=== PATIENT | male | born 1990 | race Caucasian/White ===

== ENCOUNTER → 2016-09-18 | Outpatient (CLI) | payer OTHER ==
--- NOTE | 2016-09-18 10:35 | RAD ---
Exam performed: Supine and upright X-ray abdomen KUB. Clinical Indication: Mid to right abdominal pain and cramping Date of Service: 09/18/16 Comparison: None available Findings: Upright and supine radiograph of the abdomen and pelvis reveals no evidence of ileus or obstruction. Diffuse scattered stool is seen throughout the colon including rectosigmoid region. Definite pathologic calcification or organomegaly is not identified. The visualized osseous structures appear unremarkable. Impression: 1. Diffuse scattered stool throughout the colon. Correlate clinically for constipation. 2. No additional abnormality seen.
== END | disposition home or self-care (01) ==
LOC: DXRADRC 10:08
PROVIDERS: ATTEND Physician Assistant
DX: K59.00 Constipation, unspecified (principal)
CPT/HCPCS: 74020

== ENCOUNTER → 2016-10-13 | Outpatient (CLI) | payer OTHER ==
[~2016-10-13] MED LIST: IOHEXOL 240 MG/ML 50ML VIAL. ONE; IOHEXOL 300 MG/ML 75 ML VIAL. IV ONE
--- NOTE | 2016-10-13 11:31 | RAD ---
Indication right lower quadrant pain for a month. 24 hours of nausea and diarrhea and vomiting. Axial images through the abdomen and pelvis were obtained. Only a very limited amount of oral contrast was administered. Only the stomach is opacified. 75 cc of Omnipaque 300 was administered intravenously. No prior CT imaging of the abdomen or pelvis is available. The lung bases are clear. The liver and spleen appear unremarkable. The gallbladder appears grossly normal. No adrenal or renal pathology is seen. The pancreas appears unremarkable. There is slight dilatation of small bowel loops. The finding is nonspecific but could reflect enteritis. High-grade mechanical obstruction is not suggested on this exam. The appendix is slightly dilated in the right lower quadrant measuring 7 to 8 mm in greatest diameter. This is likely incidental. Periappendiceal inflammatory changes are not seen. Early appendicitis cannot be entirely excluded on the basis of imaging and clinical correlation as to this lesser possibility advised. No additional finding is seen in the abdomen or pelvis. IMPRESSION: Mild dilatation of small bowel loops is nonspecific. Inflammation, enteritis, should be considered. Slightly prominent appendix but no periappendiceal inflammatory changes. This is likely incidental. Early appendicitis cannot be entirely excluded on the basis of imaging and clinical correlation as to this possibility advised. PQRS Compliance Statement: One or more of the following individualized dose reduction techniques were utilized for this examination: 1. Automated exposure control 2. Adjustment of the mA and/or kV according to patient size 3. Use of iterative reconstruction technique
== END | disposition home or self-care (01) ==
LOC: CT 09:34
PROVIDERS: ATTEND Physician Assistant Medical
DX: R91.8 Other nonspecific abnormal finding of lung field (principal); R10.31 Right lower quadrant pain; R11.2 Nausea with vomiting, unspecified; R19.7 Diarrhea, unspecified
CPT/HCPCS: 74177; Q9966; Q9967

== ENCOUNTER → 2016-10-14 | Outpatient (CLI) | payer OTHER | END | disposition home or self-care (01) | LOC: LAB 12:31 | PROVIDERS: ATTEND Physician Assistant Medical | DX: R19.7 Diarrhea, unspecified (principal) | CPT/HCPCS: 36415; 87045; 87177 ==

== ENCOUNTER → 2016-11-19 | Outpatient (CLI) | payer OTHER ==
--- NOTE | 2016-11-19 12:47 | RAD ---
CT abdomen/pelvis with contrast 11/19/2016 at 0950 hours Indication: Right lower quadrant abdominal pain Comparison: CT abdomen/pelvis 10/13/2016 Technique: Multiple axial CT images of the abdomen and pelvis were performed with intravenous contrast. 74 mL of Omnipaque 300 was administered intravenously. Oral contrast was administered. Findings: Lung bases are clear. Heart size is within normal limits. The liver enhances homogenously without evidence for a focal mass lesion. The spleen is normal. Bilateral adrenal glands are normal. The gallbladder is present without adjacent inflammatory changes. Pancreas is normal in appearance. No pancreatic ductal dilatation. No peripancreatic inflammatory changes. No intrahepatic or extrahepatic biliary ductal dilatation. The abdominal aorta is normal in course and caliber. IVC is patent. There are no enlarged lymph nodes in the abdomen or pelvis. There is no free intraperitoneal air. No free fluid within the abdomen or pelvis. The kidneys enhance symmetrically. There is no hydronephrosis. No contour deforming renal mass. Small and large bowel are normal in caliber. Appendix is nondilated. No pericolonic inflammatory changes are present. The urinary bladder is normal in appearance. No suspicious osseous lesions are identified. Impression: No acute abnormality of the abdomen or pelvis. Specifically, the appendix is not dilated. PQRS Compliance Statement: One or more of the following individualized dose reduction techniques were utilized for this examination: 1. Automated exposure control 2. Adjustment of the mA and/or kV according to patient size 3. Use of iterative reconstruction technique
== END | disposition home or self-care (01) ==
LOC: CT 07:41
PROVIDERS: ATTEND Internal Medicine Gastroenterology
DX: R10.31 Right lower quadrant pain (principal)
CPT/HCPCS: 74177; Q9966; Q9967

== ENCOUNTER → 2017-06-16 | Outpatient (CLI) | payer OTHER ==
--- NOTE | 2017-06-16 13:37 | RAD ---
Right neck ultrasound, 06/16/2017: History: Right neck lump The area of clinical concern along the right side of the neck was carefully scanned. There is a 3.9 x 2.8 x 1.7 cm nodule at this level. This is a solid nodule with internal vascularity. It probably represents an enlarged lymph node. CT scanning would best define the origin of this nodule and adjacent structures, if clinically indicated.
== END | disposition home or self-care (01) ==
LOC: US 12:41
PROVIDERS: ATTEND Physician Assistant
DX: R59.0 Localized enlarged lymph nodes (principal)
CPT/HCPCS: 76536

== ENCOUNTER → 2017-07-06 | Outpatient (CLI) | payer OTHER ==
[~2017-07-06] MED LIST changes: +CONTRAST GIVEN MC PRN; -IOHEXOL 240 MG/ML 50ML VIAL. ONE
--- NOTE | 2017-07-06 09:21 | RAD ---
Examination: CT soft tissue neck with IV contrast History: History of mass in the lateral portion of the neck Comparison: Ultrasound from 06/16/2017 Technique: Axial CT images of the soft tissue neck were performed and IV contrast. Coronal and sagittal reformats were performed PQRS Compliance Statement: One or more of the following individualized dose reduction techniques were utilized for this examination: 1. Automated exposure control 2. Adjustment of the mA and/or kV according to patient size 3. Use of iterative reconstruction technique . Findings: The visualized intracranial portion grossly appears unremarkable. There is a lobulated peripherally enhancing mass, measuring 3.4 x 2.8 x 2.0 centimeters (CC, transverse, AP dimension) identified in the right neck just posterior to the right internal jugular vein and right internal carotid artery at the level of C3-C4 level laterally and deep to the right sternocleidomastoid muscle. The mass is peripherally enhancing with central hypodensity. The visualized carotid, internal jugular veins appear patent. The central airways are patent. The visualized parapharyngeal spaces, thyroid gland, vascular, perform sinuses grossly appears unremarkable No evidence of lytic bony destructive lesion. Impression: 1. Lobulated peripherally enhancing mass identified in the right neck suspicious for abnormal enlarged lymph node or enhancing mass.
== END | disposition home or self-care (01) ==
LOC: CT 07:57
PROVIDERS: ATTEND Otolaryngology
DX: R22.1 Localized swelling, mass and lump, neck (principal)
CPT/HCPCS: 70491